=== PATIENT | female | born 1975 | race Caucasian/White ===

== ENCOUNTER 2019-02-25 10:12 | Inpatient (IN) | payer MEDICAID ==
[~2019-02-25] VITALS: Ht 167.6 cm; Wt 107.5 kg
[2019-02-25 10:50] VITALS: BP 173/104
--- NOTE | 2019-02-25 10:57 | NUR ---
PATIENT AMBULATED WITH STEADY GAIT TO BED 6
--- NOTE | 2019-02-25 11:00 | NUR ---
BIB SISTER REFERRED BY [facility] IN [place] C/O SUICIDAL IDATION, "CHOKE MY SELF", STERNAL CHEST PAIN RADIATING TO LUE SINCE YESTERDAY. ALSO S/P FALL FROM A STAIRS W/ SCARS ON LT FOREHEAD. PER PT SHE TOOK METH AND "DRINKING TOO MUCH" 2 DAYS AGO, UNABLE TO SLEEP. HX: HTN, DM, SEIZURE. DENIES N/V/D; SKIN IS PINK/WARM/DRY; AAOX4 WITH EVEN AND STEADY GAIT; LUNGS CLEAR BL; HR EVEN AND REGULAR; PT DENIES ANY FEVER, SOB, OR COUGH AT THIS TIME; PATIENT STATES PAIN OF 9/10 AT THIS TIME; VSS; PATIENT POSITIONED FOR COMFORT; HOB ELEVATED; BEDRAILS UP X2; BED DOWN. ER MD MADE AWARE OF PT STATUS.
[2019-02-25] MEDS ORDERED: ACETAMINOPHEN 325 MG TAB PO ONE (11:15)
[2019-02-25] MEDS ORDERED: ASPIRIN 81 MG TAB.CHEW PO ONE (11:15)
[2019-02-25 11:43] LABS: BASOPHILS # (AUTO) 0.1 K/uL (0.00-0.22); BASOPHILS % (AUTO) 0.9 % (0.0-2.0); EOSINOPHILS # (AUTO) 0.2 K/uL (0-0.4); EOSINOPHILS % (AUTO) 2.2 % (0.0-4.0); HEMATOCRIT 35.9 % (36-48); HEMOGLOBIN 11.6 g/dL (12.0-16.0); LYMPHOCYTES # (AUTO) 2.4 K/uL (2.5-16.5); LYMPHOCYTES % (AUTO) 34.6 % (20.5-51.1); MEAN CORPUSCULAR HEMOGLOBIN 27 pg (27-31); MEAN CORPUSCULAR HGB CONC 33 g/dL (33-37); MEAN CORPUSCULAR VOLUME 82.4 fL (80-94); MONOCYTES # (AUTO) 0.4 K/uL (0.8-1.0); MONOCYTES % (AUTO) 5.8 % (1.7-9.3); NEUTROPHILS # (AUTO) 3.9 K/uL (1.8-7.7); NEUTROPHILS % (AUTO) 56.5 % (42.2-75.2); PLATELET COUNT (AUTO) 223 K/uL (140-450); RED BLOOD CELL COUNT(AUTO) 4.35 MIL/uL (4.20-5.40); RED CELL DISTRIBUTION WIDTH 15.5 % (11.6-13.7); WHITE BLOOD COUNT (AUTO) 6.9 K/uL (4.8-10.8)
--- NOTE | 2019-02-25 11:48 | NUR ---
PT STATED SHE WANTS ANXIETY MEDS, REFUSED X-RAY. MADE AWARE.
[2019-02-25] MEDS ORDERED: LORazepam 2 MG/ML VIAL IVP ONE ×3 (11:55→19:20)
[2019-02-25 11:57] LABS: CARBON DIOXIDE 23.4 mmol/L (21-32); CREATININE 0.7 mg/dL (0.6-1.3); POTASSIUM 3.4 mmol/L (3.5-5.1)
[2019-02-25 12:04] LABS: TOTAL BILIRUBIN 0.2 mg/dL (0.0-1.0)
[2019-02-25] MEDS ORDERED: KETOROLAC 30 MG/ML VIAL IVP ONE (13:15)
[2019-02-25 13:17] LABS: APPEARANCE,URINE CLEAR (CLEAR); BILIRUBIN,URINE NEGATIVE (NEGATIVE); BLOOD, URINE 2+ (NEGATIVE); COLOR,URINE YELLOW (YELLOW); LEUKOCYTE ESTERASE ,URINE NEGATIVE (NEGATIVE); NITRITE, URINE NEGATIVE (NEGATIVE); UGLUCOSE NEGATIVE (NEGATIVE)
[2019-02-25 13:30] LABS: BARBITURATE, URINE NEG. ng/ml (NEG <=200); BENZODIAZEPINE, URINE NEG. ng/mL (NEG <=200); CANNABINOID, URINE NEG. ng/mL (NEG <=50); COCAINE, URINE NEG. ng/mL (NEG <=300); OPIATE, URINE NEG. ng/mL (NEG <=2000); PHENCYCLIDINE SCREEN,URINE NEG. ng/mL (NEG <=25)
[2019-02-25 13:41] LABS: RBC,URINE 0-5 /HPF (0-5); WBC,URINE 0-5 /HPF (0-5)
--- NOTE | 2019-02-25 13:52 | NUR ---
PT RESTING AT THIS TIME. ENDOSED TO TAB.
--- NOTE | 2019-02-25 14:33 | NUR ---
TRANSFER OF CARE TO MARV Thayer RN AT THIS TIME.
--- NOTE | 2019-02-25 14:37 | NUR ---
PT IS MEDICALLY CLEARED BY DR. THOMAS.
[2019-02-25] MEDS ORDERED: chlordiazePOXIDE 25 MG CAP PO SCH (15:45)
[2019-02-25] MEDS ORDERED: hydrOXYzine HCL 25 MG TAB PO SCH (15:45)
--- NOTE | 2019-02-25 16:00 | NUR ---
AT BEDSIDE TO REASSESS PT. WAITING FOR CONSULTATION.
--- NOTE | 2019-02-25 17:30 | NUR ---
pt eatting dinner at this time.
[2019-02-25] MEDS ORDERED: NICOTINE TRANSD SYS 14 MG/24 HR PATCH TD SCH (18:15)
[2019-02-25] MEDS ORDERED: OLANZapine 5 MG TAB PO SCH (18:25)
[2019-02-25] MEDS ORDERED: HALOPERIDOL IM 5 MG/ML VIAL IM ONE (18:45)
--- NOTE | 2019-02-25 18:54 | NUR ---
JULIANA VALLADARES WAS CALLED PT WALKED OUTSIDE ---UPSET SHE DOES NOT WANT TO STAY. OFFICER ADIA WALKED PT BACK INTO ER--PT APOLOGETIC, PROMISES TO STAY IN [facility].
--- NOTE | 2019-02-25 19:08 | NUR ---
endorsed pt to PM shift RN.
[2019-02-25] MEDS ORDERED: LORazepam 1 MG TAB PO ONE (19:20)
--- NOTE | 2019-02-25 19:24 | NUR ---
RECEIVED REPORT FROM YUDI FAIR.
--- NOTE | 2019-02-25 19:27 | NUR ---
PATIENT IS RESTING WITH EYES CLOSED AT THIS TIME. WILL CONTINUE TO MONITOR.
--- NOTE | 2019-02-25 19:37 | NUR ---
PSYCHIATRIST AT BEDSIDE EVALUATING PATIENT.
--- NOTE | 2019-02-25 19:39 | NUR ---
PER DR. LAWRENCE, PATIENT MEETS CRITERIA FOR 51/50 AND TO BE ADMITTED INPATIENT.
[2019-02-25] MEDS ORDERED: LORazepam 2 MG/ML VIAL ONE (21:16)
--- NOTE | 2019-02-25 21:18 | NUR ---
PULLED 2MG/1ML ATIVAN FROM OMNICELL; WASTED 1MG/0.5ML WITH YUDI BROWN. ADMINISTERED 1MG/0.5ML TO PATIENT. WILL CONTINUE TO MONITOR.
--- NOTE | 2019-02-25 21:18 | NUR ---
Note venkatesh in EDM - 02/25/19 at 2204 by [email or web address] PULLED 2MG/1ML ATIVAN FROM [employer]; WASTED 1MG/0.5ML WITH YUDI BROWN. ADMINISTERED 1MG/0.5ML TO PATIENT. WILL CONTINUE TO MONITOR.
--- NOTE | 2019-02-25 22:07 | NUR ---
PATIENT IS SITTING QUIETLY IN BED. 1:1 SITTER AT BEDSIDE. WILL CONTINUE TO MONITOR.
--- NOTE | 2019-02-25 22:14 | NUR ---
Received intake paperwork, the following facilities received information for placement. [facility]/ [facility]/ [facility]....will keep facility informed of any progress.
--- NOTE | 2019-02-25 23:53 | NUR ---
PATIENT IS RESTING WITH EYES CLOSED. 1:1 SITTER AT BEDSIDE. WILL CONTINUE TO MONITOR.
[2019-02-26] MEDS ORDERED: ONDANSETRON 4 MG/2 ML VIAL IVP PRN (00:25)
[2019-02-26] MEDS ORDERED: ACETAMINOPHEN 325 MG TAB PO PRN (00:25)
--- NOTE | 2019-02-26 00:35 | NUR ---
PT LAYING IN BED SLEEPING, AROUSABLE TO NAME, RR EVEN AND UNLABORED. VSS. ALL NEEDS MET.
--- NOTE | 2019-02-26 01:54 | NUR ---
Admited to ICU. Will go to room icu bed #6. Belongings list completed. Report to YUDI Crowe .
[2019-02-26 02:00] VITALS: BP 161/77
[2019-02-26] MEDS ORDERED: POTASSIUM CHLORIDE 10 MEQ TABER PO SCH (02:00)
--- NOTE | 2019-02-26 02:15 | NUR ---
RECEIVED REPORT FROM MING BAGLEY. PT TRANSFERRED VIA GURNEY. PT ON HOLD. PT A&O X4. PT DROWSY AND AROUSABLE TO NAME. LUNG SOUNDS CLEAR. RESPIRATIONS EVEN AND UNLABORED. HEART SOUNDS HEARD, S1 AND S2. ABDOMEN SOFT AND ROUND, NON TENDER. SKIN IS WARM AND DRY. CAP REFILL LESS THAN 2 SECONDS. BRUISE NOTED ON LOWER LEFT LEG. DENIES PAIN. RN SITTER AT BEDSIDE. BED LOCKED IN LOWEST POSITION. SIDE RAILS UP. WILL CONTINUE TO MONITOR.
--- NOTE | 2019-02-26 02:16 | NUR ---
HELD K DUR MEDICATION. PT DROWSY AT THIS TIME.
--- NOTE | 2019-02-26 02:30 | NUR ---
PHARMACY CALLED, SPOKE WITH ORACIO ON PHONE, STATED UNABLE TO MAKE BANANA BAG. DR ZAVALETA MADE AWARE. DR. ZAVALETA SAID OKAY FOR PHARMACY TO MAKE IT IN THE AM SHIFT.
--- NOTE | 2019-02-26 03:00 | NUR ---
PT AWAKE, REQUESTING FOOD. JELLO, PUDDING AND WATER PROVIDED.
[2019-02-26] MEDS: NACL 0.9% 1,000 ML IV SCH ×3 (03:45→19:40)
--- NOTE | 2019-02-26 03:45 | NUR ---
IV SITE RAC 20 GAUGE, NOT FLUSHING. UNABLE TO GAIN NEW IV ACCESS AT THIS TIME, PT MOVING AND AGITATED WHEN ATTEMPTING INSERTION. DR ZAVALETA MADE AWARE.
--- NOTE | 2019-02-26 03:46 | NUR ---
DR ZAVALETA MADE AWARE OF ELEVATED BLOOD PRESSURE, NO ORDERS GIVEN.
[2019-02-26 04:00] VITALS: BP 151/92
--- NOTE | 2019-02-26 04:15 | NUR ---
PT IS SELF REPOSITIONING. RESTING IN BED, EYES CLOSED. RESPIRATIONS EVEN AND UNLABORED. NO DISTRESS OR SOB NOTED. SAFETY PRECAUTIONS IN PLACE. WILL CONTINUE TO MONITOR.
--- NOTE | 2019-02-26 05:16 | NUR ---
PT'S CELL PHONE GIVEN TO RHIANNON BONDERIZER OPERATOR TO BE HELD AT SECURITY.
--- NOTE | 2019-02-26 05:32 | NUR ---
PT CURRENTLY RESTING IN BED, HAS EYES CLOSED. RESPIRATIONS EVEN AND UNLABORED. NO SOB OR DISTRESS NOTED. SIDE RAILS UP, BED LOCKED IN LOWEST POSITION. WILL CONTINUE TO MONITOR.
[2019-02-26 06:00] VITALS: BP 153/109
[2019-02-26 06:19] LABS: PROTHROMBIN TIME 9.6 secs (10.8-13.4)
[2019-02-26 06:25] LABS: BASOPHILS % (AUTO) 0.5 % (0.0-2.0); EOSINOPHILS # (AUTO) 0.4 K/uL (0-0.4); EOSINOPHILS % (AUTO) 5.8 % (0.0-4.0); HEMATOCRIT 33.9 % (36-48); HEMOGLOBIN 10.9 g/dL (12.0-16.0); LYMPHOCYTES % (AUTO) 46.1 % (20.5-51.1); MEAN CORPUSCULAR HEMOGLOBIN 27 pg (27-31); MEAN CORPUSCULAR HGB CONC 32 g/dL (33-37); MEAN CORPUSCULAR VOLUME 83.3 fL (80-94); MONOCYTES # (AUTO) 0.4 K/uL (0.8-1.0); NEUTROPHILS # (AUTO) 2.7 K/uL (1.8-7.7); NEUTROPHILS % (AUTO) 41.6 % (42.2-75.2); PLATELET COUNT (AUTO) 242 K/uL (140-450); RED BLOOD CELL COUNT(AUTO) 4.07 MIL/uL (4.20-5.40); RED CELL DISTRIBUTION WIDTH 15.6 % (11.6-13.7); WHITE BLOOD COUNT (AUTO) 6.6 K/uL (4.8-10.8)
[2019-02-26 06:44] LABS: MAGNESIUM 1.7 mg/dL (1.8-2.4); PHOSPHORUS 3.1 mg/dL (2.5-4.9); THYROID STIMULATING HORMONE 0.81 uIU/mL (0.34-3.74)
[2019-02-26 06:51] LABS: ANION GAP 10.2 (8-16); CARBON DIOXIDE 27.9 mmol/L (21-32); CREATININE 0.7 mg/dL (0.6-1.3); POTASSIUM 3.1 mmol/L (3.5-5.1)
--- NOTE | 2019-02-26 07:16 | NUR ---
REPORT GIVEN TO JENY RN FOR CONTINUITY OF CARE. ORDERS REVIEWED AT BEDSIDE.
--- NOTE | 2019-02-26 07:30 | NUR ---
RECEIVED BEDSIDE REPORT FROM WOOD FURNITURE ASSEMBLER RN. PT IS ASLEEP, DROWSY, AROUSABLE TO NAME. ABLE TO MAKE NEEDS KNOWN, FOLLOWS SIMPLE COMMANDS. NORMAL SINUS RHYTHM ON MONITOR, S1 S2 HEARD. CAP REFILL < 2 SEC. PULSES PALPABLE TO ALL EXTREMITIES. PT IS ON ROOM AIR SPO2 100%, RR 12. LUNGS SOUND CLEAR BILATERALLY. BREATHING EVEN AND UNLABORED. ABDOMEN SOFT, ROUND AND NONTENDER WITH ACTIVE BOWEL SOUNDS. PERIPHERAL IV G20 TO RAC DISLODGED. PT REFUSED A NEW IV INSERTION AT THIS TIME. SKIN IS DRY AND WARM TO TOUCH. ABLE TO MOVE ALL EXTREMITIES. BRUISE NOTED TO LEFT LOWER LEG. DENIES PAIN. AFEBRILE. BED IN LOWEST POSITION LOCKED. BED ALARM ON. SIDE RAILS UP. SAFETY PRECAUTIONS IN PLACE. WILL CONTINUE TO MONITOR.
[2019-02-26 08:00] VITALS: BP 141/74
--- NOTE | 2019-02-26 08:13 | NUR ---
DR. PINZON AND RESIDENT GROUP IN TO SEE PT. DR. MOULTON AWARE THAT PT REFUSED PERIPHERAL IV INSERTION, POTASSIUM LEVEL 3.1, MG 1.7. WILL FOLLOW UP ON ORDERS.
[2019-02-26] MEDS: LISINOPRIL 5 MG TAB PO SCH (08:23)
[2019-02-26] MEDS: DOCUSATE SODIUM 100 MG GELCAP PO SCH ×2 (08:23→20:58)
[2019-02-26] MEDS: chlordiazePOXIDE 25 MG CAP PO SCH ×3 (08:23→17:15)
[2019-02-26] MEDS: FAMOTIDINE 20 MG TAB PO SCH (08:23)
--- NOTE | 2019-02-26 08:45 | NUR ---
PT HAD 100% OF BREAKFAST. MEDICATIONS ADMINISTERED ORDERED. NO PROBLEM/DIFFICULTY SWALLOWING PILLS. WILL CONTINUE TO MONITOR.
[2019-02-26] MEDS: LORazepam 2 MG/ML VIAL IVP PRN ×5 (08:50→19:22)
[2019-02-26] MEDS: HYDROcodone/APAP 7.5/325 MG 1 TAB PO PRN ×2 (08:50→19:21)
[2019-02-26] MEDS ORDERED: MULTIVITAMIN-12 10 ML, THIAMINE 100 MG, MAGNESIUM SULFATE 50% 2,000 MG, FOLIC ACID 5 MG... IV ONE ×5 (09:00)
[2019-02-26] MEDS ORDERED: MAG SULF 2000 MG/WATER PREMIX 50 ML IV ONE (09:10)
[2019-02-26] MEDS ORDERED: OLANZapine 5 MG TAB PO SCH (09:15)
--- NOTE | 2019-02-26 09:15 | NUR ---
PATIENT HAS BEEN SCREENED AND CATEGORIZED HIGH NUTRITION RISK. PATIENT WILL BE SEEN WITHIN 1-2 DAYS OF ADMISSION. 02/26/19-02/27/[address]
[2019-02-26] MEDS: METOPROLOL SUCCINATE 50 MG TABER PO SCH (09:37)
[2019-02-26] MEDS: POTASSIUM CHLORIDE 10 MEQ TABER PO SCH ×2 (09:38→20:57)
[2019-02-26] MEDS ORDERED: COMMUNICATION ORDER MC SCH (09:56)
--- NOTE | 2019-02-26 09:58 | NUR ---
UNABLE TO SCAN BANANA BAG. PHARMACIST TATI MADE AWARE. ADMINISTERED BANANA BAG AT ORDERED RATE 100 ML/HR, WITNESSED BY SECOND RN, JENY.
--- NOTE | 2019-02-26 10:10 | NUR ---
PT TRANSFERRED TO ROOM 109B VIA WHEELCHAIR. PT IS IN STABLE CONDITION. COOPERATIVE. NO S/SX OF DISTRESS NOTED AT THIS TIME.
--- NOTE | 2019-02-26 10:15 | NUR ---
REPORT RECEIVED FROM CIELO SWARTZ MOVED TO ROOM 110B IN WHEELCHAIR.
--- NOTE | 2019-02-26 11:59 | NUR ---
[facility] Call Center aware of patient pending medical clearance. Once medically cleared the [facility] will continue to look for psych placement if needed. Please contact the Call Center [phone] when able to proceed.
--- NOTE | 2019-02-26 12:20 | NUR ---
SCHEDULED MEDICATION ADMINISTERED ORDERED. PT IS HAVING LUNCH, COOPERATIVE, SITTER IN ROOM. SAFETY PRECAUTIONS IN PLACE. WILL CONTINUE TO MONITOR.
--- NOTE | 2019-02-26 13:30 | NUR ---
PT CRYING SCREAMING AT NURSES STATION, C/O ANXIETY, PAIN, STATES NORCO AND ATIVAN ARE NOT WORKING, INFORMED DR VASQUEZ AND SAIGE, TORADOL ORDER RECEIVED.
--- NOTE | 2019-02-26 13:33 | NUR ---
[facility] still aware of patient. Please fax packet to [phone] for placement for inpatient psych if needed
[2019-02-26] MEDS: KETOROLAC 15 MG/ML VIAL IVP PRN ×2 (13:44→19:22)
--- NOTE | 2019-02-26 14:26 | NUR ---
PT CRYING UNCONTROLLABLY, TRYING TO GET OUT OF ROOM, ASKING TO GO OUT TO GO SMOKE, HOSPITAL POLICY EXPLAINED, PT UNABLE TO VERBALIZE UNDERSTANDING, PT DENIES SI AT THIS TIME, BUT STATES "I'M GOING TO WANT TO KILL MYSELF IF I CAN'T SMOKE", PT REQUESTS SOMETHING TO HELP HER GO TO SLEEP, DR MOULTON AWARE.
[2019-02-26] MEDS ORDERED: HALOPERIDOL IM 5 MG/ML VIAL ONE (14:33)
--- NOTE | 2019-02-26 14:39 | NUR ---
HALDOL GIVEN IM 5MG, PT CRYING APOLOGIZING FOR BEING UNREASONABLE, PT STATES SHE JUST WANTS TO GO TO SLEEP. POSITIONED FOR COMFORT, LIGHT TURNED OFF, EXTRA BLANKETS PROVIDED.
[2019-02-26] MEDS ORDERED: HALOPERIDOL IM 5 MG/ML VIAL IM SCH ×2 (15:00→20:35)
--- NOTE | 2019-02-26 15:00 | NUR ---
PT SITTING UP AT SIDE OF BED CALMLY, NO LONGER CRYING OR SCREAMING, REMAINS WITH SITTER, WILL CONTINUE TO MONITOR.
--- NOTE | 2019-02-26 15:46 | NUR ---
PT C/O ANXIETY, ATIVAN GIVEN AT THIS TIME.
--- NOTE | 2019-02-26 16:20 | NUR ---
PT REFUSES TO GET VITALS TAKEN, PT REQUESTS TO BE LEFT ALONE.
--- NOTE | 2019-02-26 18:09 | NUR ---
PT SITTING UP EATING SNACK, STATES SHE IS FEELING BETTER NOW. REMAINS WITH SITTER FOR SUICIDAL PRECAUTION, WILL CONTINUE TO MONTIOR.
--- NOTE | 2019-02-26 19:22 | NUR ---
REPORT GIVEN TO SHOE CEMENTER NURSE AT BEDSIDE, PT C/O ANXIETY AND PAIN, MEDICATED PER PRN ORDER WITH ATIVAN AND TORADOL. PT REQUESTING FOR MORE MEDICATION FOR ANXIETY AND SLEEP, PT INFORMED THAT TRAZODONE AND ZYPREXA IS DUE AT 2100, PT VERBALIZED UNDERSTANDING.
--- NOTE | 2019-02-26 19:23 | NUR ---
RECEIVED PT FROM JENY RN PT YAKUT SPEAKER AAOX4 AMBULATORY RESTING ON BED IV ON RT FA INFUSING WELL PT 5150 HOLD PT VERBALIZED SHE WANT TO SLEEP AND MEDEIC GIVEN IS NOT WORKING ON CLOSE MONITOING INITIAL ASSESSMENT DONE
--- NOTE | 2019-02-26 20:30 | NUR ---
PT COMBATIVE WANTS TO GO TO SMOKE AND POLICE IS HERE AND SECURITY IS HERE AND SHAREBROKER ANDREW IS HERE. PT CAME BACK TO ROOM AND MEDIC WILL BE GIVEN
[2019-02-26] MEDS ORDERED: LORazepam 2 MG/ML VIAL IM/IVP SCH (20:35)
[2019-02-26] MEDS: OLANZapine 5 MG TAB PO SCH (20:59)
[2019-02-26] MEDS ORDERED: traZODone 50 MG TAB PO SCH (21:00)
[2019-02-26] MEDS: DIVALPROEX 250 MG TABEC PO SCH (21:00)
--- NOTE | 2019-02-26 23:00 | NUR ---
PT IS RESTING ON BED 5150 HOLD NOT DISTRESS NOTED AT THIS TIME
[2019-02-27] VITALS: BP 154/105
[2019-02-27] MEDS: LORazepam 2 MG/ML VIAL IVP PRN ×5 (01:49→22:45)
[2019-02-27] MEDS: HYDROcodone/APAP 7.5/325 MG 1 TAB PO PRN ×2 (01:49→21:10)
--- NOTE | 2019-02-27 02:00 | NUR ---
SITTER AT BED SIDE PT HAS BEEN WITH LOOSE STOOL AFTER TAKEN NIGHT MEDI , SLPONGE BATH GIVEN
--- NOTE | 2019-02-27 05:28 | NUR ---
PT SLEEPING NOT DISTRESS NOTED SITTER AT BED SIDE REMAIN STABLE AST THIS TIME
[2019-02-27] MEDS: NACL 0.9% 1,000 ML IV SCH ×2 (05:40→15:40)
--- NOTE | 2019-02-27 06:51 | NUR ---
PT 5150 HOLD SITTER AT BED SIDE , PT IS SLEEPING AT THIS TIME, AND PT WILL BE ENDORSED TO DAY SHIFT NURSE FOR CONTINUE OF CARE
[2019-02-27 07:08] LABS: BASOPHILS % (AUTO) 0.5 % (0.0-2.0); EOSINOPHILS # (AUTO) 0.3 K/uL (0-0.4); EOSINOPHILS % (AUTO) 5.3 % (0.0-4.0); HEMOGLOBIN 9.8 g/dL (12.0-16.0); LYMPHOCYTES # (AUTO) 2.5 K/uL (2.5-16.5); LYMPHOCYTES % (AUTO) 43.5 % (20.5-51.1); MEAN CORPUSCULAR HEMOGLOBIN 27 pg (27-31); MEAN CORPUSCULAR HGB CONC 32 g/dL (33-37); MEAN CORPUSCULAR VOLUME 83.8 fL (80-94); MONOCYTES # (AUTO) 0.3 K/uL (0.8-1.0); MONOCYTES % (AUTO) 5.5 % (1.7-9.3); NEUTROPHILS # (AUTO) 2.6 K/uL (1.8-7.7); NEUTROPHILS % (AUTO) 45.2 % (42.2-75.2); PLATELET COUNT (AUTO) 229 K/uL (140-450); WHITE BLOOD COUNT (AUTO) 5.7 K/uL (4.8-10.8)
[2019-02-27 07:16] LABS: ANION GAP 13.5 (8-16); CARBON DIOXIDE 23.5 mmol/L (21-32); CREATININE 0.6 mg/dL (0.6-1.3)
[2019-02-27 07:30] LABS: MAGNESIUM 1.9 mg/dL (1.8-2.4); PHOSPHORUS 3.5 mg/dL (2.5-4.9)
--- NOTE | 2019-02-27 07:41 | NUR ---
RECEIVED BEDSIDE REPORT FROM PM RN PT AWAKE IN BED PT APPEARS STABLE AND IN NO APPARENT DISTRESS. ALL SAFETY MEASURES ARE IN PLACE WILL CONTINUE TO MONITOR. 5150 SITTER AT BEDSIDE.
--- NOTE | 2019-02-27 08:05 | NUR ---
Received report from night coordinator. [facility] monitoring notes for medical clearance.
[2019-02-27 08:55] VITALS: BP 146/68
[2019-02-27] MEDS: DOCUSATE SODIUM 100 MG GELCAP PO SCH ×2 (09:00→21:00)
[2019-02-27 09:30] LABS: CHOL/HDL RATIO 4.1 (1-4.5)
[2019-02-27] MEDS: FOLIC ACID 1 MG TAB PO SCH (10:04)
[2019-02-27] MEDS: chlordiazePOXIDE 25 MG CAP PO SCH ×3 (10:04→16:47)
[2019-02-27] MEDS: METOPROLOL SUCCINATE 50 MG TABER PO SCH (10:04)
[2019-02-27] MEDS: THIAMINE 100 MG TAB PO SCH (10:04)
[2019-02-27] MEDS: MULTIVITAMIN 1 TAB PO SCH (10:05)
[2019-02-27] MEDS: DIVALPROEX 250 MG TABEC PO SCH ×2 (10:05→21:04)
[2019-02-27] MEDS: FAMOTIDINE 20 MG TAB PO SCH (10:05)
[2019-02-27] MEDS: OLANZapine 5 MG TAB PO SCH ×2 (10:05→21:07)
[2019-02-27] MEDS: LISINOPRIL 5 MG TAB PO SCH (10:06)
--- NOTE | 2019-02-27 11:05 | NUR ---
Spa Experience Coordinator Note: Patient refused to speak with me, not able to conduct assessment.
--- NOTE | 2019-02-27 11:33 | NUR ---
ADMINISTERED ATIVAN VIA IV PUSH. PT STATED SHE WAS ANXIOUS. PT IN 5150 ROOM WITH 1:1 SITTER. ALL SAFETY MEASURES ARE IN PLACE WILL CONTINUE TO MONITOR.
[2019-02-27] MEDS: DIPHENOXYLATE /ATROPINE 2.5 MG TAB PO PRN ×2 (12:17→21:10)
[2019-02-27] MEDS: KETOROLAC 15 MG/ML VIAL IVP PRN ×2 (13:09→22:46)
--- NOTE | 2019-02-27 13:50 | NUR ---
PT UPSET WANTING TO SMOKE PT 1:1 SITTER PT LEFT THE BUILDING. SECURITY HAS PATIENT. JCARLOS SECURITY AND CHARGE NURSE STATED WE WILL ALLOW PATIENT TO SMOKE JUST THIS ONCE. PT STATED THAT SHE IS AWARE SHE IS ONLY ALLOWED TO SMOKE THIS ONCE.
--- NOTE | 2019-02-27 15:34 | NUR ---
FREQUENT ROUNDING ON PT PT APPEARS STABLE AND IN NO APPARENT DISTRESS. ALL SAFETY MEASURES ARE IN PLACE 1:1 SITTER AT BEDSIDE. PT RESTING COMFORTABLY IN BED WILL CONTINUE TO MONITOR.
--- NOTE | 2019-02-27 16:50 | NUR ---
ATIVAN ADMINISTERED PT STATED FEELING ANXIOUS. 1:1 SITTER AT BEDSIDE. ALL SAFETY MEASURES ARE IN PLACE WILL CONTINUE TO MONITOR.
--- NOTE | 2019-02-27 19:27 | NUR ---
ENDORSED PT TO PM RN PT APPEARS STABLE AND IN NO APPARENT DISTRESS. ALL SAFETY MEASURES ARE IN PLACE
--- NOTE | 2019-02-27 19:28 | NUR ---
RECEIVED BEDSIDE REPORT FROM IVET, CIELO AWAKE, ALERT O X 4, AMBULATORY.PT PT STATED SHE WAS ANXIOUS. PT IN 5150 ROOM WITH 1:1 SITTER. ALL SAFETY MEASURES ARE IN PLACE WILL CONTINUE TO MONITOR.
--- NOTE | 2019-02-27 19:45 | NUR ---
RECEIVED WITH AN IV THAT IS INFILTRATED; STARTED AN IV ON THE LEFT HAND G 24
[2019-02-27] MEDS ORDERED: traZODone 50 MG TAB PO SCH (21:00)
--- NOTE | 2019-02-27 22:00 | NUR ---
PT ANXIOUS, GIVEN ATIVAN, PT RUDE TO STAFF AND SITTER, COMFORTED PATIENT, BUT PATIENT STILL WANTS TO GET HER OWN WAY. SHE WANTS TO GO OUT OF THE ROOM. WANTS TO SMOKE
[2019-02-28] VITALS: BP 157/99
[2019-02-28] MEDS: LORazepam 2 MG/ML VIAL IVP PRN ×5 (00:28→11:57)
--- NOTE | 2019-02-28 01:37 | NUR ---
PT HAD 1 EPISODE OF DIARRHEA; AND PT HAD IT ON THE FLOOR, WILL HAVE BELTING INSPECTOR CLEAN IT
--- NOTE | 2019-02-28 01:39 | NUR ---
PT SHOWERED, AND DRESSED CLEANED BY SITTER
[2019-02-28] MEDS: NACL 0.9% 1,000 ML IV SCH ×2 (01:40→11:40)
--- NOTE | 2019-02-28 01:40 | NUR ---
NS IVF NOT CONTINUED PT REFUSED ; PT DRINKING A LOT OF WATER AND DOES NOT STAY PUT IN ONE PLACE; EXPLAINED TO THE PT THE RISKS AND BENEFITS OF IVF. PT VERBALIZED UNDERSTANDING
--- NOTE | 2019-02-28 03:54 | NUR ---
PT IS ANXIOUS TALKING ABOUT HER AND FATHER. PT STATES, "MY DAD A FEW MONTHS AGO AND MY LEFT ME." PT ASKING TO GO OUTSIDE. REDIRECTED PT TO BED AND ADMINISTERED IVP ATIVAN PRN PER ORDERS.
--- NOTE | 2019-02-28 04:30 | NUR ---
INFORMED DR. AVALOS THAT PT HAD COLACE/ STOOL SOFTENER 31 HRS AGO. AND IF WE COULC CANCEL THE C. DIFF TOXIN. DR. ZAVALETA SAID OK TO TAKE IT OUT. CANCEL THE ORDER FOR C. DIFF
--- NOTE | 2019-02-28 07:37 | NUR ---
Called TELE, s/w Belkis. Per Belkis, patient is medically stable for psych placement.
--- NOTE | 2019-02-28 07:39 | NUR ---
RECEIVED BEDSIDE REPORT FROM PM RN PT AWAKE IN BED PT APPEARS STABLE AND IN NO APPARENT DISTRESS. ALL SAFETY MEASURES ARE IN PLACE WILL CONTINUE TO MONITOR. PT IN HER ROOM. 5150 SITTER AT BEDSIDE. WILL CONTINUE TO MONITOR.
--- NOTE | 2019-02-28 07:49 | NUR ---
Packet faxed to the following facilities: [facility]
[2019-02-28] MEDS: DOCUSATE SODIUM 100 MG GELCAP PO SCH (09:00)
[2019-02-28] MEDS: FOLIC ACID 1 MG TAB PO SCH (09:06)
[2019-02-28] MEDS: MULTIVITAMIN 1 TAB PO SCH (09:06)
[2019-02-28] MEDS: DIPHENOXYLATE /ATROPINE 2.5 MG TAB PO PRN (09:06)
[2019-02-28] MEDS: chlordiazePOXIDE 25 MG CAP PO SCH ×2 (09:06→14:20)
[2019-02-28] MEDS: FAMOTIDINE 20 MG TAB PO SCH (09:07)
[2019-02-28] MEDS: METOPROLOL SUCCINATE 50 MG TABER PO SCH (09:07)
[2019-02-28] MEDS: THIAMINE 100 MG TAB PO SCH (09:07)
[2019-02-28] MEDS: DIVALPROEX 250 MG TABEC PO SCH (09:07)
[2019-02-28] MEDS: LISINOPRIL 5 MG TAB PO SCH (09:07)
--- NOTE | 2019-02-28 09:17 | NUR ---
UNABLE TO ADMINISTER ZYPREXA AT THE MOMENT. NOT STOCKED IN [facility] NOTIFIED PHARMACY
[2019-02-28] MEDS: OLANZapine 5 MG TAB PO SCH (10:22)
--- NOTE | 2019-02-28 10:58 | NUR ---
Patient has been accepted to [facility], bed #1109-B, under Dr. Woods. For report please call [phone]. Addendum: 02/28/19 at 1208 by Manasa Trivedi Transportation arranged through [facility] , pick-up time is 1500; medical necessity certificate faxed to [facility]. Nursing staff informed. Manasa Trivedi, ACSW/[place] Ext [phone]
[2019-02-28] MEDS ORDERED: LISI-424 PO (11:14)
[2019-02-28] MEDS ORDERED: METO50TE2 PO (11:14)
[2019-02-28] MEDS ORDERED: TRAZ-466 PO (11:14)
[2019-02-28] MEDS ORDERED: DIVA250E1 PO (11:14)
[2019-02-28] MEDS ORDERED: OLAN5TAB30 PO (11:14)
--- NOTE | 2019-02-28 11:23 | NUR ---
[facility] [phone] GAVE REPORT TO PAULINE
--- NOTE | 2019-02-28 13:46 | NUR ---
FREQUENT ROUNDING ON PT PT AWAKE IN BED PT APPEARS STABLE AND IN NO APPARENT DISTRESS. ALL SAFETY MEASURES ARE IN PLACE WILL CONTINUE TO MONITOR, PT PULLED OUT HER OWN IV IV TIP INTACT. 5150 SITTER AT BEDSIDE
--- NOTE | 2019-02-28 15:35 | NUR ---
PT TAKEN OFF THE UNIT FROM [facility] TO [facility]. FOR PSYCH FACILITY PLACEMENT.
== END 2019-02-28 15:30 | disposition designated cancer center or children's hospital (05) | DRG 52 ==
LOC: MED 10:12 → MIC 02-26 00:29 → MTU 02-26 10:10
PROVIDERS: ADMIT General Practice; ATTEND General Practice
DX: G92 Toxic encephalopathy (principal); E44.0 Moderate protein-calorie malnutrition; R45.851 Suicidal ideations; K76.0 Fatty (change of) liver, not elsewhere classified; F10.239 Alcohol dependence with withdrawal, unspecified; F31.9 Bipolar disorder, unspecified; Y90.0 Blood alcohol level of less than 20 mg/100 ml; Z68.39 Body mass index [BMI] 39.0-39.9, adult; F41.9 Anxiety disorder, unspecified; F15.90 Other stimulant use, unspecified, uncomplicated; E87.6 Hypokalemia; I10 Essential (primary) hypertension; K42.9 Umbilical hernia without obstruction or gangrene
CPT/HCPCS: 36415; 70450; 71045; 80048; 80053; 80305; 81001; 83036; 83690; 83735; 83880; 84100; 84443; 84484; 85025; 85610; 85730; 87081; 93005; 96372; 96374; 96375; 96376; 99285; A9153; J1630; J1644; J1885; J2060; J3411; J3475; J3490; J7030; Q0092